=== PATIENT | female | born 1980 | race Caucasian/White ===

== ENCOUNTER 2019-04-14 06:03 | Day surgery (SDC) | payer SELFPAY ==
[2019-04-04 18:03] VITALS: BMI 25.7
[2019-04-14] MEDS ORDERED: LIDOCAINE HCL 1% PRESERVATIVE FREE - 30ML VIAL ONE (07:46)
[2019-04-14] MEDS ORDERED: EPINEPHrine/PF 1 MG/1 ML (1:1,000) AMPULE ONE ×2 (07:46→07:53)
[2019-04-14] MEDS ORDERED: SODIUM BICARBONATE 8.4% 50 MEQ/50 ML VIAL ONE (07:46)
[2019-04-14] MEDS ORDERED: PROPOFOL 20 ML ONE ×4 (08:02)
[2019-04-14] MEDS ORDERED: MIDAZOLAM HCL 2 MG/2 ML SINGLE DOSE VIAL ONE ×2 (08:02)
[2019-04-14] MEDS ORDERED: fentaNYL CITRATE 250 MCG/5 ML VIAL ONE (08:02)
[2019-04-14] MEDS ORDERED: ROCURONIUM BROMIDE 50 MG/5 ML SYRINGE ONE (08:02)
[2019-04-14] MEDS ORDERED: DEXAMETHASONE SOD PHOSPHATE 4 MG/1 ML VIAL ONE (08:23)
[2019-04-14] MEDS ORDERED: ceFAZolin SODIUM 1 GM VIAL ONE (08:23)
[2019-04-14] MEDS ORDERED: ONDANSETRON 4 MG/2 ML VIAL ONE ×2 (08:23→10:28)
[2019-04-14] MEDS ORDERED: NEOSTIGMINE METHYLSULFATE 0.5 MG/ML - 10 ML MDV ONE (09:59)
[2019-04-14] MEDS ORDERED: GLYCOPYRROLATE 0.2 MG/1 ML VIAL ONE (10:12)
[2019-04-14] MEDS ORDERED: GUM MASTIC/STORAX/MSAL/ALCOHOL 1 DRP DROPSBTL MC ONE (10:37)
[2019-04-14] MEDS ORDERED: ONDANSETRON 4 MG/2 ML VIAL IVPUSH PRN (11:08)
[2019-04-14] MEDS ORDERED: oxyCODONE HCL 5 MG TABLET PO PRN (11:08)
[2019-04-14] MEDS ORDERED: LACTATED RINGERS SOLUTION 1,000 ML IV SCH (11:15)
[2019-04-14 12:38] VITALS: TEMP 98.3
[2019-04-14 14:22] VITALS: BP 128/69; PULSE 77
--- NOTE | 2019-04-19 16:08 | PATH ---
Surgical Pathology Report Patient Name: SHADI MARTINS [facility]. Rec. #: [id number] /Age/Gender: 1980 (Age: 38) / F Account: [id number] Location: [facility] Taken: 04/14/2019 Received: 04/14/2019 Reported: 04/19/2019 Physicians: Binta Barker M.D. Specimen(s) Received ABDOMEN SKIN AND TISSUE Clinical History Cosmetic Final Diagnosis ABDOMEN, SKIN AND TISSUE, ABDOMINOPLASTY: SKIN AND ADIPOSE TISSUE, DESCRIBED (GROSS EXAMINATION ONLY). Electronically Signed Iman Chahal M.D. Gross Description Received in formalin, labeled "abdomen skin and tissue" is a 37.5 x 17.5 x 5.3 cm portion of light lama skin with underlying adipose tissue. No lesions are identified. For gross examination only.
== END 2019-04-14 14:05 | disposition home or self-care (01) ==
LOC: FASU 06:03
PROVIDERS: ATTEND Plastic Surgery
PROC: 0J080ZZ Alteration of Abdomen Subcutaneous Tissue and Fascia, Open Approach (ICD-10-PCS; principal; 2019-04-14 08:44)
PROC: 0J083ZZ Alteration of Abdomen Subcutaneous Tissue and Fascia, Percutaneous Approach (ICD-10-PCS; 2019-04-14 08:44)
DX: Z41.1 Encounter for cosmetic surgery (principal)
CPT/HCPCS: 81025; 88300-TC; 94760